=== PATIENT | male | born 1955 | race American Indian/Alaskan Native ===

== ENCOUNTER 2018-07-10 11:59 | Outpatient (CLI) | payer BC | END 2018-07-10 12:00 | disposition home or self-care (01) | LOC: C.MRIC 11:59 ==

== ENCOUNTER 2018-08-07 16:21 | Outpatient (CLI) | payer BC | END 2018-08-07 16:22 | disposition home or self-care (01) | LOC: C.MRIC 16:21 | DX: M54.12 Radiculopathy, cervical region (principal) ==